=== PATIENT | male | born 1975 | race African-American/Black ===

== ENCOUNTER 2018-12-16 21:16 | Inpatient (IN) | payer OTHER ==
[2018-12-16] MEDS ORDERED: ONDANSETRON 4 MG/2 ML VIAL IVP STA (22:17)
[2018-12-16] MEDS ORDERED: SODIUM CHLORIDE 0.9% 1,000 ML IV STA (22:17)
--- NOTE | 2018-12-16 22:20 | ED ---
General Adult HPI - General Chief complaint: Nausea/Vomiting/Diarrhea Stated complaint: Fever Time Seen by Provider: 12/16/18 22:12 Source: patient, family, RN notes reviewed, old records reviewed Mode of arrival: ambulatory Limitations: no limitations - History of Present Illness Initial comments: 43-year-old male presents for evaluation of nausea vomiting and diarrhea. Patient is his symptoms for the past 24 hours. He reports initially having vomi ting which and progressed to diarrhea. He has not had any episodes of vomiting in the past 12 hours. He states he has had no appetite. He also believes that his urine is concentrated and he is dehydrated. No specific abdominal pain. Patient just completed one week at rehabilitation for cocaine abuse. - Related Data Home Medications Medication Instructions Recorded Confirmed Acetaminophen [Tylenol] 650 mg PO Q4H PRN 12/16/18 12/16/18 Calcium/Magnesium 1000mg/500mg 1 - 2 tab PO TID PRN 12/16/18 12/16/18 Chlorpheniramine Maleate 4 mg PO Q4H PRN 12/16/18 12/16/18 [Chlor-Trimeton] Ibuprofen [Motrin] 600 mg PO Q6H PRN 12/16/18 12/16/18 Multivitamins, Thera [Multivitamin 1 tab PO DAILY 12/16/18 12/16/18 (formulary)] Ondansetron HCl [Zofran] 8 mg PO Q6H PRN 12/16/18 12/16/18 Ondansetron [Zofran] 4 mg IM Q6H PRN 12/16/18 12/16/18 Thiamine [Vitamin B-1] 100 mg PO DAILY 12/16/18 12/16/18 cloNIDine HCL [Catapres] 0.1 mg PO Q4H PRN 12/16/18 12/16/18 traZODone HCL 50 - 150 mg PO HS 12/16/18 12/16/18 Allergies Allergy/AdvReac Type Severity Reaction Status Date / Time No Known Allergies Allergy Verified 12/16/18 22:38 Review of Systems ROS Statement: Those systems with pertinent positive or pertinent negative responses have been documented in the HPI. ROS Other: All systems not noted in ROS Statement are negative. Past Medical History Past Medical History: No Reported History History of Any Multi-Drug Resistant Organisms: None Reported Past Surgical History: No Surgical Hx Reported Past Psychological History: No Psychological Hx Reported Smoking Status: Current every day smoker Past Alcohol Use History: Occasional Past Drug Use History: None Reported General Exam Limitations: no limitations General appearance: alert, in no apparent distress Head exam: Present: atraumatic, normocephalic Eye exam: Present: PERRL, other (Right subconjunctival hemorrhage) ENT exam: Present: mucous membranes dry Neck exam: Present: normal inspection. Absent: tenderness, meningismus Respiratory exam: Present: normal lung sounds bilaterally. Absent: respiratory distress, wheezes, rales Cardiovascular Exam: Present: regular rate, normal rhythm GI/Abdominal exam: Present: soft. Absent: distended, tenderness, guarding, rebound Extremities exam: Present: normal inspection, normal capillary refill. Absent: pedal edema Back exam: Present: normal inspection Neurological exam: Present: alert, oriented X3, CN II-XII intact. Absent: motor sensory deficit Psychiatric exam: Present: normal affect, normal mood Skin exam: Present: warm, dry, intact. Absent: cyanosis, diaphoretic Course Vital Signs 12/16/18 21:51 Temperature 98.7 F Pulse Rate 96 Respiratory 18 Rate Blood Pressure 101/68 O2 Sat by Pulse 98 Oximetry Medical Decision Making - Medical Decision Making 43-year-old male with nausea vomiting diarrhea. Mild generalized abdominal pain, no rebound or guarding, nonsurgical abdomen. Stable vital signs, well- appearing with some dehydration exam. He has significant leukocytosis white count of 20,000, hemoglobin 12.1, creatinine elevated 5.92, potassium is normal for 0.3, he has an elevated total bili 4.5, bili fractions will be added, he has mild AST and ALT elevation as well as alkaline phosphatase. PT INR will be added to his laboratory testing. Gallbladder and liver ultrasound will be obtained, this is pending. Patient will be admitted with significant laboratory abnormalities, dehydration, acute renal failure, liver failure. Case discussed with Dr. Fowler, will admit - Lab Data Result diagrams: 12/16/18 22:45 12/16/18 22:45 Lab Results 12/16/18 12/16/18 12/16/18 Range/Units 22:45 22:45 22:45 WBC 20.3 H (3.8-10.6) k/uL RBC 4.68 (4.30-5.90) m/uL Hgb 12.1 L (13.0-17.5) gm/dL Hct 35.8 L (39.0-53.0) % MCV 76.4 L (80.0-100.0) fL MCH 25.8 (25.0-35.0) pg MCHC 33.8 (31.0-37.0) g/dL RDW 14.3 (11.5-15.5) % Plt Count 124 L (150-450) k/uL Neutrophils % 94 % Lymphocytes % 2 % Monocytes % 2 % Eosinophils % 1 % Basophils % 0 % Neutrophils # 19.2 H (1.3-7.7) k/uL Lymphocytes # 0.4 L (1.0-4.8) k/uL Monocytes # 0.3 (0-1.0) k/uL Eosinophils # 0.2 (0-0.7) k/uL Basophils # 0.0 (0-0.2) k/uL Microcytosis Slight Sodium 137 (137-145) mmol/L Potassium 4.3 (3.5-5.1) mmol/L Chloride 99 (98-107) mmol/L Carbon Dioxide 24 (22-30) mmol/L Anion Gap 14 mmol/L BUN 86 H (9-20) mg/dL Creatinine 5.92 H (0.66-1.25) mg/dL Est GFR (CKD-EPI)AfAm 12 (>60 ml/min/1.73 sqM) Est GFR (CKD-EPI)NonAf 11 (>60 ml/min/1.73 sqM) Glucose 90 (74-99) mg/dL Calcium 8.3 L (8.4-10.2) mg/dL Total Bilirubin 4.5 H (0.2-1.3) mg/dL AST 117 H (17-59) U/L ALT 100 H (21-72) U/L Alkaline Phosphatase 205 H (38-126) U/L Total Protein 6.0 L (6.3-8.2) g/dL Albumin 2.8 L (3.5-5.0) g/dL Lipase 152 (23-300) U/L Urine Color Yellow Urine Appearance Cloudy (Clear) Urine pH 5.0 (5.0-8.0) Ur Specific [place] 1.011 (1.001-1.035) Urine Protein 1+ H (Negative) Urine Glucose (UA) Trace H (Negative) Urine Ketones Trace H (Negative) Urine Blood Small H (Negative) Urine Nitrite Negative (Negative) Urine Bilirubin 1+ H (Negative) Urine Urobilinogen 2.0 (<2.0) mg/dL Ur Leukocyte Esterase Large H (Negative) Urine RBC 3 (0-5) /hpf Urine WBC 34 H (0-5) /hpf Ur Squamous Epith Cells <1 (0-4) /hpf Urine Mucus Rare H (None) /hpf Disposition Clinical Impression: Dehydration, Acute renal failure Disposition: ADMITTED IP TO THIS HOSP Condition: Stable Is patient prescribed a controlled substance at d/c from ED?: No Referrals: None,Stated [Primary Care Provider] - 1-2 days Decision to Admit Reason: Admit from EC Decision Date: 12/16/18 Decision Time: 23:59
[2018-12-16 22:52] LABS: Appearance,Urine Cloudy (Clear); Bilirubin,Urine 1+ (Negative); Blood,Urine Small (Negative); Color,Urine Yellow; Glucose,Urine (UA) Trace (Negative); Ketones,Urine Trace (Negative); Leukocyte Esterase,Urine Large (Negative); Mucus,Urine Rare /hpf; Nitrite,Urine Negative (Negative); Protein,Urine 1+ (Negative); RBC,Urine 3 /hpf (0-5); Specific Gravity,Urine 1.011 (1.001-1.035); Squamous Epithelial Cell,Urine <1 /hpf (0-4); WBC,Urine 34 /hpf (0-5)
[2018-12-16 23:02] LABS: Basophils % (A) 0 %; Eosinophils # (A) 0.2 k/uL (0-0.7); Eosinophils % (A) 1 %; HCT 35.8 % (39.0-53.0); HGB 12.1 gm/dL (13.0-17.5); Lymphocytes # (A) 0.4 k/uL (1.0-4.8); Lymphocytes % (A) 2 %; MCH 25.8 pg (25.0-35.0); MCHC 33.8 g/dL (31.0-37.0); MCV 76.4 fL (80.0-100.0); Mean Platelet Volume 6.3; Microcytosis Slight; Monocytes # (A) 0.3 k/uL (0-1.0); Monocytes % (A) 2 %; Neutrophils # (A) 19.2 k/uL (1.3-7.7); Neutrophils % (A) 94 %; Platelet Count 124 k/uL (150-450); RBC 4.68 m/uL (4.30-5.90); RDW 14.3 % (11.5-15.5); WBC 20.3 k/uL (3.8-10.6)
[2018-12-16 23:07] LABS: Albumin 2.8 g/dL (3.5-5.0); Calcium 8.3 mg/dL (8.4-10.2); Potassium 4.3 mmol/L (3.5-5.1); Total Bilirubin 4.5 mg/dL (0.2-1.3)
[2018-12-16] MEDS ORDERED: cefTRIAXone IN SWFI 1,000 MG/10 ML SYRINGE IVP STA (23:42)
[2018-12-16] MEDS ORDERED: SODIUM CHLORIDE 0.9% 1,000 ML IV ONE (23:42)
[2018-12-16] MEDS ORDERED: NALOXONE 0.4 MG/ML 1 ML VIAL IV PRN (23:56)
[2018-12-16 23:57] LABS: Bilirubin, Conjugated 2.4 mg/dL (0.0-0.3); Bilirubin, Delta 1.2 mg/dL (0.0-0.2); Bilirubin,Unconjugated 0.8 mg/dL (0.0-1.1); Total Bilirubin 4.4 mg/dL (0.2-1.3)
[2018-12-17 00:03] LABS: INR 0.9 (<1.2); Partial Thromboplastin Time 26.4 sec (22.0-30.0); Prothrombin Time 9.8 sec (9.0-12.0)
[2018-12-17] MEDS: SODIUM CHLORIDE 0.9% 1,000 ML IV SCH ×4 (00:20→21:29)
[2018-12-17] MEDS ORDERED: NICOTINE 14MG/24HR PATCH TRANSDERM STA (00:43)
--- NOTE | 2018-12-17 00:51 | P.HPIM ---
History of Present Illness H&P Date: 12/17/18 The patient is a 43 yo M with a PMH of polysubstance abuse and tobacco abuse presented to the ED for nausea and vomiting. The patient notes that he had been at [facility] over the past 1 week for cocaine and crystal meth detox. 2 days ago he developed nausea and vomiting with 5-6 episodes of vomiting yesterday and today. He reports the vomitus is non-bloody and non-billious with his abdomen feeling "sore" after the multiple episodes. He denied diarrhea, or sick contacts. He initially felt that his symptoms could be from withdrawal though once they did not improve, he came to the ED. He also endorsed urinary frequency and urgency and notes that he has a "prostate issue", possibly BPH. He endorsed significant nocturia of 3-4 x/night. He reported his last use of cocaine was 1 week ago, which he was injecting, and that he hasn't used crystal meth for several months. He also denied any alcohol use over the psat 4-5 years He however denied chest pain, SOB, fever, chills, headache, visual disturbances, or weakness. He noted that he was last seen by a physician 1 year ago when he was admitted to a hospital for acute renal failure from dehydration, after which his kidney failure had resolved. He denied history of hepatitis or any liver issues. He underwent an extensive evaluation in the ED w/ WBC 20.3, platelets 124, BUN 86, Cr 5.92, w/ Albumin 2.8, and UA consistent with a UTI. A RUQ US was ordered and is pending. He is being admitted to the medicine service for further management. Review of Systems Pertinent positives and negatives as discussed in HPI, a complete review of systems was performed and all other systems are negative. Past Medical History Past Medical History: No Reported History, Renal Disease History of Any Multi-Drug Resistant Organisms: None Reported Past Surgical History: No Surgical Hx Reported Past Psychological History: No Psychological Hx Reported Smoking Status: Current every day smoker Past Alcohol Use History: Occasional Past Drug Use History: None Reported - Past Family History Father Family Medical History: Cancer Medications and Allergies Home Medications Medication Instructions Recorded Confirmed Type Acetaminophen [Tylenol] 650 mg PO Q4H PRN 12/16/18 12/16/18 History Calcium/Magnesium 1000mg/500mg 1 - 2 tab PO TID PRN 12/16/18 12/16/18 History Chlorpheniramine Maleate 4 mg PO Q4H PRN 12/16/18 12/16/18 History [Chlor-Trimeton] Ibuprofen [Motrin] 600 mg PO Q6H PRN 12/16/18 12/16/18 History Multivitamins, Thera [Multivitamin 1 tab PO DAILY 12/16/18 12/16/18 History (formulary)] Ondansetron HCl [Zofran] 8 mg PO Q6H PRN 12/16/18 12/16/18 History Ondansetron [Zofran] 4 mg IM Q6H PRN 12/16/18 12/16/18 History Thiamine [Vitamin B-1] 100 mg PO DAILY 12/16/18 12/16/18 History cloNIDine HCL [Catapres] 0.1 mg PO Q4H PRN 12/16/18 12/16/18 History traZODone HCL 50 - 150 mg PO HS 12/16/18 12/16/18 History Allergies Allergy/AdvReac Type Severity Reaction Status Date / Time No Known Allergies Allergy Verified 12/16/18 22:38 Physical Exam Vitals: Vital Signs Temp Pulse Resp BP Pulse Ox 12/16/18 21:51 98.7 F 96 18 101/68 98 Intake and Output 12/16/18 12/16/18 12/17/18 14:59 22:59 06:59 Other: Weight 77.111 kg General: non toxic, no distress, appears at stated age, normal weight Derm: Mild jaundice, no unusual ecchymoses, warm, dry Head: atraumatic, normocephalic, symmetric Eyes: EOMI, no lid lag, mild scleral icterus w/ R conjunctival injection, pupils equal round reactive to light ENT: Nose and ears atraumatic, no thrush, no pharyngeal erythema Neck: No thyromegaly, no cervical lymphadenopathy, trachea midline, supple Mouth: no lip lesion, mucus membranes moist Cardiovascular: S1S2 reg, no murmur, positive posterior tibial pulse bilateral, no edema, capillary refill less than 2 seconds Lungs: CTA bilateral, no rhonchi, no rales , no accessory muscle use Abdominal: soft, nontender to palpation, no guarding, no appreciable organomegaly, normal bowel sounds Ext: no gross muscle atrophy, muscle strength 5 out of 5 in all 4 extremities grossly, no contractures, Neuro: CN II-XI grossly intact, light touch intact all 4 extremities, finger to nose within normal limits, Psych: Alert, oriented, appropriate affect Results CBC & Chem 7: 12/16/18 22:45 12/16/18 22:45 Labs: Abnormal Lab Results - Last 24 Hours (Table) 12/16/18 12/16/18 12/16/18 Range/Units 22:45 22:45 22:45 WBC 20.3 H (3.8-10.6) k/uL Hgb 12.1 L (13.0-17.5) gm/dL Hct 35.8 L (39.0-53.0) % MCV 76.4 L (80.0-100.0) fL Plt Count 124 L (150-450) k/uL Neutrophils # 19.2 H (1.3-7.7) k/uL Lymphocytes # 0.4 L (1.0-4.8) k/uL BUN 86 H (9-20) mg/dL Creatinine 5.92 H (0.66-1.25) mg/dL Calcium 8.3 L (8.4-10.2) mg/dL Total Bilirubin 4.5 H (0.2-1.3) mg/dL Conjugated Bilirubin (0.0-0.3) mg/dL Delta Bilirubin (0.0-0.2) mg/dL AST 117 H (17-59) U/L ALT 100 H (21-72) U/L Alkaline Phosphatase 205 H (38-126) U/L Total Protein 6.0 L (6.3-8.2) g/dL Albumin 2.8 L (3.5-5.0) g/dL Urine Protein 1+ H (Negative) Urine Glucose (UA) Trace H (Negative) Urine Ketones Trace H (Negative) Urine Blood Small H (Negative) Urine Bilirubin 1+ H (Negative) Ur Leukocyte Esterase Large H (Negative) Urine WBC 34 H (0-5) /hpf Urine Mucus Rare H (None) /hpf 12/16/18 Range/Units 23:48 WBC (3.8-10.6) k/uL Hgb (13.0-17.5) gm/dL Hct (39.0-53.0) % MCV (80.0-100.0) fL Plt Count (150-450) k/uL Neutrophils # (1.3-7.7) k/uL Lymphocytes # (1.0-4.8) k/uL BUN (9-20) mg/dL Creatinine (0.66-1.25) mg/dL Calcium (8.4-10.2) mg/dL Total Bilirubin 4.4 H (0.2-1.3) mg/dL Conjugated Bilirubin 2.4 H (0.0-0.3) mg/dL Delta Bilirubin 1.2 H (0.0-0.2) mg/dL AST (17-59) U/L ALT (21-72) U/L Alkaline Phosphatase (38-126) U/L Total Protein (6.3-8.2) g/dL Albumin (3.5-5.0) g/dL Urine Protein (Negative) Urine Glucose (UA) (Negative) Urine Ketones (Negative) Urine Blood (Negative) Urine Bilirubin (Negative) Ur Leukocyte Esterase (Negative) Urine WBC (0-5) /hpf Urine Mucus (None) /hpf Assessment and Plan Plan: Renal failure, BLNACHE vs CKD -C/w IVFs -Send urine studies -Consult nephrology Nausea and vomiting, possibly secondary to uremia -Anti-emetics -Liquid diet Deranged LFTs w/ elevated bilirubin and transaminases, and hypoalbuminemia -F/u RUQ US -Check Hepatitis panel -GI consult UTI w/ possible BPH -Obtain bladder scan -C/w Ceftriaxone -F/u urine cultures Thrombocytopenia -Possibly secondary to liver failure -Monitor for now Polysubstance abuse -Advised on importance of cessation Tobacco abuse -Advised on importance of cessation -Nicotine patch DVT prophylaxis -IPCDs The patient is admitted with an anticipated greater than 2 midnight stay for evaluation of renal and liver failure. CODE STATUS:Full Code Discussed with: Patient Anticipated discharge date: 12/20/[address]: Home A total of 45 minutes was spent on the care of this complex patient more than 50% of the time was spent in counseling and care coordination.
--- NOTE | 2018-12-17 01:11 | US ---
EXAM: US Abdomen Limited, Right Upper Quadrant CLINICAL HISTORY: ITS.REASON US Reason: Pain TECHNIQUE: Real-time ultrasound of the right upper quadrant with image documentation. COMPARISON: No relevant prior studies available. FINDINGS: Liver: The liver measures 17.0 cm in length. Gallbladder: No gallstones. Borderline gallbladder wall thickness. Negative sonographic Tong's sign. Common bile duct: Common bile duct measures 4 mm. Pancreas: Mildly prominent pancreatic duct. Right kidney: The right kidney measures 13.5 cm in length. No significant hydronephrosis. Right renal cyst measures 3.7 cm. IMPRESSION: 1. No gallstones. 2. Mildly prominent pancreatic duct. 3. Right renal cyst.
[2018-12-17] MEDS: ONDANSETRON 4 MG TAB PO PRN ×2 (01:29→21:24)
[2018-12-17 02:10] VITALS: BMI 25.1
[2018-12-17] MEDS: METOCLOPRAMIDE 5 MG/ML 2 ML VIAL IVP PRN ×2 (05:40→18:12)
[2018-12-17 06:02] LABS: HCT 33.6 % (39.0-53.0); HGB 11.4 gm/dL (13.0-17.5); MCH 25.8 pg (25.0-35.0); MCHC 33.8 g/dL (31.0-37.0); MCV 76.5 fL (80.0-100.0); Mean Platelet Volume 6.8; Platelet Count 131 k/uL (150-450); RBC 4.39 m/uL (4.30-5.90); RDW 14.9 % (11.5-15.5); WBC 13.3 k/uL (3.8-10.6)
[2018-12-17 06:12] LABS: Albumin 2.5 g/dL (3.5-5.0); Calcium 7.8 mg/dL (8.4-10.2); Potassium 3.7 mmol/L (3.5-5.1); Total Bilirubin 5.8 mg/dL (0.2-1.3); Total Protein 5.5 g/dL (6.3-8.2)
--- NOTE | 2018-12-17 09:40 | P.PN ---
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 No diarrhea was reported prior to admission. O:- VSS, afebrile, CTA&P, RRR, S1S2 +, Abdomen soft and BS+, PP+, No point spinous tenderness of thoracic or Lumbar spines. A/P:- Diarrhea, Back pain, UTI, BLANCHE - Will check stool C. Diff toxin A & B. Pt. was referred to GI and Nephrology services and their recs awaited. Pt. also c/o mid back pain, with h/o UTI and on Abx, may be due to Pyelonephritis as no point spinous tenderness noted on today's exam. If pain persists post control of infection, may consider MRI of thoracic and Lumbar spines as due to BLANCHE Contrast CT-Thoracic & Lumbar spines can't be done.
[2018-12-17] MEDS: ONDANSETRON 4 MG/2 ML VIAL IVP PRN ×2 (10:12→15:45)
[2018-12-17] MEDS ORDERED: FUROSEMIDE 10 MG/ML 4 ML VIAL IV SCH (10:15)
[2018-12-17] MEDS ORDERED: traMADol-ACETAMINOP 37.5-325MG 1 EACH TAB PO PRN (12:01)
[2018-12-17 13:07] LABS: Hepatitis B Surface AB- Quant 3.5 mIU/mL
--- NOTE | 2018-12-17 13:31 | P.NPCON ---
History of Present Illness - Reason for Consult Consult date: 12/17/18 acute renal failure - Chief Complaint Vomiting and diarrhea. - History of Present Illness 43-year-old gentleman coming to the hospital from [facility] for nausea and vomiting for the last 24 hours. Denies any history of kidney disease. Very poor historian. No further nausea vomiting while in the hospital. He was taking Motrins. No recent contrast studies. No herbal use. Denies rash or joint pains. He used to abuse alcohol in the past but not lately. Urine analysis noted, blood, glucose, protein and predominant WBCs. Abdominal ultrasound no hydronephrosis. Review of Systems Constitutional: Reports as per HPI Past Medical History Past Medical History: No Reported History, Renal Disease History of Any Multi-Drug Resistant Organisms: None Reported Past Surgical History: No Surgical Hx Reported Past Psychological History: No Psychological Hx Reported Smoking Status: Current every day smoker Past Alcohol Use History: Occasional Past Drug Use History: None Reported - Past Family History Father Family Medical History: Cancer Medications and Allergies Home Medications Medication Instructions Recorded Confirmed Type Acetaminophen [Tylenol] 650 mg PO Q4H PRN 12/16/18 12/16/18 History Calcium/Magnesium 1000mg/500mg 1 - 2 tab PO TID PRN 12/16/18 12/16/18 History Chlorpheniramine Maleate 4 mg PO Q4H PRN 12/16/18 12/16/18 History [Chlor-Trimeton] Ibuprofen [Motrin] 600 mg PO Q6H PRN 12/16/18 12/16/18 History Multivitamins, Thera [Multivitamin 1 tab PO DAILY 12/16/18 12/16/18 History (formulary)] Ondansetron HCl [Zofran] 8 mg PO Q6H PRN 12/16/18 12/16/18 History Ondansetron [Zofran] 4 mg IM Q6H PRN 12/16/18 12/16/18 History Thiamine [Vitamin B-1] 100 mg PO DAILY 12/16/18 12/16/18 History cloNIDine HCL [Catapres] 0.1 mg PO Q4H PRN 12/16/18 12/16/18 History traZODone HCL 50 - 150 mg PO HS 12/16/18 12/16/18 History Allergies Allergy/AdvReac Type Severity Reaction Status Date / Time No Known Allergies Allergy Verified 12/16/18 22:38 Physical Exam Vitals: Vital Signs Temp Pulse Pulse Resp BP BP Pulse Ox 12/17/18 12:24 97.9 F 76 16 106/68 97 12/17/18 12:22 97.9 F 76 16 106/68 97 12/17/18 05:28 97.9 F 106 H 16 96/60 96 12/17/18 02:10 98.4 F 86 18 110/70 98 12/17/18 00:20 71 18 98/60 99 12/16/18 21:51 98.7 F 96 18 101/68 98 Intake and Output 12/16/18 12/17/18 12/17/18 22:59 06:59 14:59 Intake Total 500 Balance 500 Intake: Intake, IV Titration 500 Amount Sodium Chloride 0.9% 1, 500 000 ml @ 100 mls/hr IV . Q10H INOCENCIO Rx#:[id number] Other: Voiding Method Urinal Urinal Weight 77.111 kg No acute distress lying comfortable S1-S2 heard Lungs clear Abdomen soft No edema Results - Lab Results Most recent lab results Calcium 7.8 mg/dL (8.4-10.2) L 12/17/18 05:47 Magnesium 2.0 mg/dL (1.6-2.3) 12/17/18 05:47 12/17/18 05:47 12/17/18 05:47 Assessment and Plan Assessment: #1 oliguric acute kidney injury secondary to prerenal process from nausea and vomiting plus diarrhea. Rule out: -acute interstitial nephritis with recent Motrin use and pyuria. -Vasculitis from cocaine. -Rhabdomyolysis from cocaine #2 low normal blood pressures. #3 liver dysfunction #4 metabolic acidosis from acute kidney injury #5 mild hypokalemia Plan: #1 continue with IV fluids at 125 ML's an hour. Serum osmolality is high, calculated is also 309. Due to elevated bun. #2 strict ins and outs. #3 urine eosinophils has been sent including serology. Check ANCA to rule out vasculitis. He does not need a 24-hour urine protein at this time. #4 add low-dose tutoring for hemodynamic support. #5 avoid nephrotoxic agents and hypotensive episodes. #6 no acute indication for renal replacement therapy at this time. If renal function continues to remain high planned renal biopsy. #7 GI evaluation for elevated liver enzymes. Rule out Tylenol toxicity
[2018-12-17 13:51] LABS: Hepatitis B Core IgM Non-Reactive (Non-Reactive)
[2018-12-17 18:46] LABS: Iron Saturation 7.77 (15.00-50.00)
[2018-12-17 20:28] LABS: EBV-EA (IgG) <0.2 AI; EBV-EBNA(IgG) >8.0 AI; EBV-VCA (IgG) >8.0 AI
--- NOTE | 2018-12-17 21:45 | P.CONS ---
History of Present Illness - Reason for Consult Consult date: 12/17/18 Elevated liver enzymes Requesting physician: Juanjose Fowler - Chief Complaint Nausea and vomiting - History of Present Illness 43-year-old male with a past medical history significant for polysubstance abuse, tobacco abuse and a prior history of alcohol abuse for which she has been abstinent for the past 2 years who presents to the hospital with complaints of nausea and vomiting. The patient was admitted to rehab 1 week ago for treatment of cocaine and crystal meth abuse. 2 days ago the patient developed symptoms of nausea and vomiting. He reports approximately 5 episodes of non-bloody emesis. He denies any sick contacts or unusual exposures prior to developing symptoms. The patient's had associated abdominal pain described as generalized across his abdomen, mild and sore in nature. Patient also reported some loose stool, nonbloody which developed with his symptoms. Labs on hospitalization or significant for a WBC 13.3, hemoglobin 11.4, MCV 76.5, platelet count 131,000, INR 0.9, total bilirubin 5.8, alkaline phosphatase 195, AST 99 and ALT 95. Patient was also found to have a markedly elevated creatinine and has been hospitalized for acute kidney injury in the past. On questioning he denies any history of liver disease or viral hepatitis. He has been an IV drug user in the past. He denies any herbal supplementation but does note a family history of cirrhosis and his grandfather and mother which she believes it was secondary to alcohol abuse. The patient himself reports drinking to the point of blacking out from the age of 15 until approximately 2 years ago. Ultrasound evaluation was negative for any gallstones or CBD dilation with a right renal cyst noted. Review of Systems REVIEW OF SYSTEMS: CONSTITUTIONAL: Denies any subjective fevers but does report fatigue. CARDIOVASCULAR: Denies any chest pain, palpitations high or low blood pressures RESPIRATORY: Denies any shortness of breath, hemoptysis or cough. GENITOURINARY: No dysuria or hematuria, but the patient does report nocturia, and dark urine. MUSCULOSKELETAL: No weakness reported. SKIN: Denies any new rashes or lesions, jaundice or pallor. PSYCHIATRIC: Denies any depression or anxiety. NEUROLOGY: Denies headache, denies any new focal deficits. EARS/NOSE/THROAT: No recent hearing change, congestion, nasal discharge or sore throat. EYES: No pain in eyes, discharge or change in vision. GASTROINTESTINAL: As per HPI. Past Medical History Past Medical History: No Reported History, Renal Disease History of Any Multi-Drug Resistant Organisms: None Reported Past Surgical History: No Surgical Hx Reported Past Psychological History: No Psychological Hx Reported Smoking Status: Current every day smoker Past Alcohol Use History: Occasional Past Drug Use History: None Reported - Past Family History Father Family Medical History: Cancer Additional Family Medical History / Comment(s): Reports cirrhosis secondary to alcohol abuse in mother and grandfather Medications and Allergies Home Medications Medication Instructions Recorded Confirmed Type Acetaminophen [Tylenol] 650 mg PO Q4H PRN 12/16/18 12/16/18 History Calcium/Magnesium 1000mg/500mg 1 - 2 tab PO TID PRN 12/16/18 12/16/18 History Chlorpheniramine Maleate 4 mg PO Q4H PRN 12/16/18 12/16/18 History [Chlor-Trimeton] Ibuprofen [Motrin] 600 mg PO Q6H PRN 12/16/18 12/16/18 History Multivitamins, Thera [Multivitamin 1 tab PO DAILY 12/16/18 12/16/18 History (formulary)] Ondansetron HCl [Zofran] 8 mg PO Q6H PRN 12/16/18 12/16/18 History Ondansetron [Zofran] 4 mg IM Q6H PRN 12/16/18 12/16/18 History Thiamine [Vitamin B-1] 100 mg PO DAILY 12/16/18 12/16/18 History cloNIDine HCL [Catapres] 0.1 mg PO Q4H PRN 12/16/18 12/16/18 History traZODone HCL 50 - 150 mg PO HS 12/16/18 12/16/18 History Allergies Allergy/AdvReac Type Severity Reaction Status Date / Time No Known Allergies Allergy Verified 12/16/18 22:38 Physical Exam Vitals: Vital Signs Temp Pulse Pulse Resp BP BP Pulse Ox 12/17/18 12:24 97.9 F 76 16 106/68 97 12/17/18 12:22 97.9 F 76 16 106/68 97 12/17/18 05:28 97.9 F 106 H 16 96/60 96 12/17/18 02:10 98.4 F 86 18 110/70 98 12/17/18 00:20 71 18 98/60 99 12/16/18 21:51 98.7 F 96 18 101/68 98 Intake and Output 12/16/18 12/17/18 12/17/18 22:59 06:59 14:59 Intake Total 500 Balance 500 Intake: Intake, IV Titration 500 Amount Sodium Chloride 0.9% 1, 500 000 ml @ 100 mls/hr IV . Q10H [facility] Rx#:[id number] Other: Voiding Method Urinal Weight 77.111 kg On physical examination, patient appears comfortable in no apparent distress. HEAD: Normocephalic, atraumatic. EYES: Minimal scleral icterus. No conjunctival injection. MOUTH: No lesions, tongue midline. NECK: Trachea midline, no gross abnormalities. CHEST: Clear to auscultation with no wheezing or rhonchi appreciated. HEART: Regular rate and rhythm. ABDOMEN: Soft. Bowel sounds are positive. No organomegaly. No guarding or rigidity. EXTREMITIES: No pedal edema. SKIN: No rashes. NEUROLOGIC: Alert and oriented x3. No focal deficits. Results CBC & Chem 7: 12/17/18 05:47 12/17/18 05:47 Labs: Abnormal Lab Results - Last 24 Hours (Table) 12/16/18 12/16/18 12/16/18 Range/Units 22:45 22:45 22:45 WBC 20.3 H (3.8-10.6) k/uL Hgb 12.1 L (13.0-17.5) gm/dL Hct 35.8 L (39.0-53.0) % MCV 76.4 L (80.0-100.0) fL Plt Count 124 L (150-450) k/uL Neutrophils # 19.2 H (1.3-7.7) k/uL Lymphocytes # 0.4 L (1.0-4.8) k/uL BUN 86 H (9-20) mg/dL Creatinine 5.92 H (0.66-1.25) mg/dL Glucose (74-99) mg/dL Osmolality (280-301) mosm/kg Calcium 8.3 L (8.4-10.2) mg/dL Total Bilirubin 4.5 H (0.2-1.3) mg/dL Conjugated Bilirubin (0.0-0.3) mg/dL Delta Bilirubin (0.0-0.2) mg/dL AST 117 H (17-59) U/L ALT 100 H (21-72) U/L Alkaline Phosphatase 205 H (38-126) U/L Total Protein 6.0 L (6.3-8.2) g/dL Albumin 2.8 L (3.5-5.0) g/dL Urine Protein 1+ H (Negative) Urine Glucose (UA) Trace H (Negative) Urine Ketones Trace H (Negative) Urine Blood Small H (Negative) Urine Bilirubin 1+ H (Negative) Ur Leukocyte Esterase Large H (Negative) Urine WBC 34 H (0-5) /hpf Urine Mucus Rare H (None) /hpf 12/16/18 12/17/18 12/17/18 Range/Units 23:48 05:47 05:47 WBC 13.3 H (3.8-10.6) k/uL Hgb 11.4 L (13.0-17.5) gm/dL Hct 33.6 L (39.0-53.0) % MCV 76.5 L (80.0-100.0) fL Plt Count 131 L (150-450) k/uL Neutrophils # (1.3-7.7) k/uL Lymphocytes # (1.0-4.8) k/uL BUN (9-20) mg/dL Creatinine (0.66-1.25) mg/dL Glucose (74-99) mg/dL Osmolality 309 H (280-301) mosm/kg Calcium (8.4-10.2) mg/dL Total Bilirubin 4.4 H (0.2-1.3) mg/dL Conjugated Bilirubin 2.4 H (0.0-0.3) mg/dL Delta Bilirubin 1.2 H (0.0-0.2) mg/dL AST (17-59) U/L ALT (21-72) U/L Alkaline Phosphatase (38-126) U/L Total Protein (6.3-8.2) g/dL Albumin (3.5-5.0) g/dL Urine Protein (Negative) Urine Glucose (UA) (Negative) Urine Ketones (Negative) Urine Blood (Negative) Urine Bilirubin (Negative) Ur Leukocyte Esterase (Negative) Urine WBC (0-5) /hpf Urine Mucus (None) /hpf 12/17/18 Range/Units 05:47 WBC (3.8-10.6) k/uL Hgb (13.0-17.5) gm/dL Hct (39.0-53.0) % MCV (80.0-100.0) fL Plt Count (150-450) k/uL Neutrophils # (1.3-7.7) k/uL Lymphocytes # (1.0-4.8) k/uL BUN 85 H (9-20) mg/dL Creatinine 6.11 H (0.66-1.25) mg/dL Glucose 69 L (74-99) mg/dL Osmolality (280-301) mosm/kg Calcium 7.8 L (8.4-10.2) mg/dL Total Bilirubin 5.8 H (0.2-1.3) mg/dL Conjugated Bilirubin (0.0-0.3) mg/dL Delta Bilirubin (0.0-0.2) mg/dL AST 99 H (17-59) U/L ALT 95 H (21-72) U/L Alkaline Phosphatase 195 H (38-126) U/L Total Protein 5.5 L (6.3-8.2) g/dL Albumin 2.5 L (3.5-5.0) g/dL Urine Protein (Negative) Urine Glucose (UA) (Negative) Urine Ketones (Negative) Urine Blood (Negative) Urine Bilirubin (Negative) Ur Leukocyte Esterase (Negative) Urine WBC (0-5) /hpf Urine Mucus (None) /hpf US - abdomen: report reviewed (Ultrasound evaluation was negative for any gallstones or CBD dilation with a right renal cyst noted.) Assessment and Plan (1) Elevated liver enzymes Narrative/Plan: 43-year-old male who presented to the hospital due to complaints of nausea and vomiting after one week at a rehabilitation center where he was receiving treatment for polysubstance. On presentation to the hospital liver enzymes were found to be markedly elevated with total bilirubin 5.8, alkaline phosphatase 195, AST 99 and ALT 95. Ultrasound negative for any findings of gallstones or gallbladder wall thickening and CBD within normal limits at 4 mm. Unclear etiology of elevation in liver enzymes however the patient's 30 year history of heavy alcohol use does make underlying fibrosis/cirrhosis likely, with consideration also for ischemia/hypoperfusion of the liver in the setting of dehydration, acute viral hepatitis panel significant only for immunity to hepatitis B, with full serology ordered to rule out any other underlying liver pathology. Current Visit: Yes Status: Acute Code(s): R74.8 - ABNORMAL LEVELS OF OTHER SERUM ENZYMES SNOMED Code(s): 751334801 (2) History of alcohol abuse Current Visit: Yes Status: Acute Code(s): F10.11 - ALCOHOL ABUSE, IN REMISSION SNOMED Code(s): 840732743 Plan: Supportive care IV fluid hydration Antiemetic therapy as needed Okay for diet Full liver serologies ordered to rule out underlying liver pathology, the patient did have elevation in ferritin over 1000 however other iron studies are not consistent with hemachromatosis and this is likely elevated in the setting of acute liver injury MRI abdomen without contrast ordered to rule out choledocholithiasis, although less likely given the absence of gallstones or CBD dilation on ultrasound or clinical presentation consistent with the diagnosis Thank you for allowing us to participate in the care of the patient we will continue to follow
[2018-12-18 07:25] LABS: Total Volume 24 Hour,Urine 2450 mls (800-1800)
[2018-12-18 08:05] LABS: Prothrombin Time 10.5 sec (9.0-12.0)
[2018-12-18 08:07] LABS: Acetaminophen <10.0 ug/mL; African American GFR (CKD) 15 (>60 ml/min/1.73 sqM); Anion Gap 11 mmol/L; Blood Urea Nitrogen 88 mg/dL (9-20); Calcium 7.9 mg/dL (8.4-10.2); Carbon Dioxide 23 mmol/L (22-30); Chloride 104 mmol/L (98-107); Glucose 83 mg/dL (74-99); Potassium 3.5 mmol/L (3.5-5.1); Sodium 138 mmol/L (137-145)
[2018-12-18 08:09] LABS: Albumin 2.3 g/dL (3.5-5.0); Bilirubin, Conjugated 4.1 mg/dL (0.0-0.3); Bilirubin, Delta 1.8 mg/dL (0.0-0.2); Bilirubin,Unconjugated 0.7 mg/dL (0.0-1.1); Total Bilirubin 6.6 mg/dL (0.2-1.3); Total Protein 5.3 g/dL (6.3-8.2)
[2018-12-18] MEDS: SODIUM CHLORIDE 0.9% 1,000 ML IV SCH ×3 (08:33→17:01)
[2018-12-18 09:08] LABS: Total Protein 24 Hour,Urine 735 mg/24hr (42.0-225.0)
--- NOTE | 2018-12-18 09:58 | PN ---
PROGRESS NOTE Patient is seen for followup for acute kidney injury. His creatinine had peaked to 6.1 yesterday. Today it is down to 5.1. Patient states he has been voiding. He denies any other significant complaints. No complaints of nausea, vomiting or abdominal pain. No previous labs available to assess patient's baseline renal function. All serologies are negative thus far. PHYSICAL EXAMINATION: On examination today, blood pressure was 95/56, heart rate 71 per minute. Patient is afebrile. EXAMINATION OF THE HEART: S1 and S2. EXAMINATION OF LUNGS: Bilateral breath sounds are heard. ABDOMEN: Soft, non-tender. Examination of lower extremities shows no significant edema. LABS: Sodium 138, potassium 3.5, BUN 88, serum creatinine 5.13, hemoglobin 11.4 g/dL. Yesterday ferritin was elevated at 1346 and iron saturation at 7.7. ASSESSMENT: 1. Advanced renal failure, most likely acute. Some improvement in creatinine from yesterday. However, renal function remains elevated. The patient had been on NSAIDs prior to admission, which are currently on hold. Continue with aggressive IV hydration. All serologies are thus far negative. Check urine for eosinophiles and, if positive, I will add empiric steroids. If renal function does not improve, patient will need a kidney biopsy. 2. Metabolic acidosis from renal failure. 3. Rhabdomyolysis from cocaine abuse. 4. Liver dysfunction secondary to hypoperfusion. Rule out chronic liver disease. PLAN: Continue IV fluids. Repeat labs in a.m. Check urine for eosinophiles. Start empiric steroids if urine eosinophiles are positive. Check ultrasound of the kidneys and avoid any nephrotoxic medications. MMODL / IJN: [id number] /
[2018-12-18 10:16] LABS: Ceruloplasmin 28.4 mg/dL (20.0-60.0)
--- NOTE | 2018-12-18 12:14 | MR ---
EXAMINATION TYPE: MR abdomen wo con DATE OF EXAM: 12/18/2018 COMPARISON: Ultrasound 12/17/2018 HISTORY: RUQ abd pain, N & V, Elevated bilirubin, ARF Standard multiplanar, multisequence MRI departmental protocol Multiplanar, multisequence images of the abdomen were acquired. Exam is severely limited due to motio n artifact and lack of contrast. Exam is nearly nondiagnostic due to the amount of artifact.. FINDINGS: Severe artifact limits the exam. There is a simple appearing right renal cyst with no hydronephrosis. Kidneys are prominent size. Subcentimeter simple cyst involving the lower pole left kidney. Nonspeci fic perinephric edema noted bilaterally. Spleen is homogeneous in signal in the adrenal glands have a normal morphology. Pancreas grossly with in normal limits. Mild prominence the pancreatic duct by ultrasound is not as well-seen by MRI. Bowel gas pattern nonspecific. Evaluation of the pancreas is limited due to motion artifact. No obvio us neoplastic process. Gallbladder measures 8 cm distended with no definite gallstones. Subsegmental changes at both lung ba ses are seen suggestive of atelectasis. At T2 imaging particularly image 28 there is an area of low signal within the liver within the right lobe. This is not replicated on T1 images. There is severe artifact in the region. Difficult to deter mine if this is artifactual or related to intrahepatic lesion given the limitation of this exam. Heart is prominent and the aorta is limited in assessment due to artifact.. Could not exclude a subcu taneous edema. Ampullary region is difficult to assess and nondiagnostic due to artifact and motion IMPRESSION: 1. Severely limited exam which is nearly nondiagnostic. Grossly the gallbladder measures 8 cm and nany ears to be mildly distended without evidence of gallstone. Consider HIDA scan. 2. There is a area of abnormal signal measuring 2.7 cm within the right lobe of the liver which is on ly identified on T2 imaging. Given the limitation of this exam a follow-up CT scan is recommended for further evaluation with attention to the lateral margin of the right lobe to determine if this is ar tifactual or related to true pathology. Underlying neoplasm or pathology not excluded given the limit ation of this exam. 3. Cardiomegaly and bibasilar subsegmental consolidation.
--- NOTE | 2018-12-18 17:32 | P.PN ---
Subjective Progress Note Date: 12/18/18 (delayed charting patient seen at 1230) Principal diagnosis: nausea and vomiting Patient is a 43-year-old -[place] male with a past medical history of polysubstance abuse with heroin and cocaine, tobacco abuse, and prior acute kidney injury. Patient presented from [facility] due to 2 days of nausea and vomiting. In the ER he underwent an extensive evaluation. On arrival his vital signs were within normal limits. Laboratory analysis showed an elevated white blood cell count at 20.3, hemoglobin 12.1, platelets 124, BUN 86, creatinine 5.92, total bilirubin 4.5, AST 117, ALP 100, alkaline phosphatase 205. Urinalysis was negative. He underwent a right upper quadrant ultrasound which showed no gallstones, mildly prominent pancreatic duct, and right renal cyst. He was started on IV fluids and made for further monitoring. Acute hepatitis panel was checked which was nonreactive. GI nephrology were consulted. AMA negative, complement levels negative. IgG for EBV and CMV reactive however IgM was nonreactive. On 12/18 he had slight improvement in his renal function. Ceruloplasmin negative, alpha-1 antitrypsin was elevated, CPK was not significantly elevated consistent with rhabdo. His ferritin was slightly elevated at 1346 over remainder of labs were not consistent with hemachromatosis. Patient seen and examined at bedside. Denies any chest pain, shortness breath, nausea, vomiting, or diarrhea. Objective - Vital Signs Vital signs: Vital Signs Temp 98.4 F 12/18/18 12:35 Pulse 71 12/18/18 12:35 Resp 16 12/18/18 12:35 BP 95/57 12/18/18 12:35 Pulse Ox 97 12/18/18 12:35 Intake & Output 12/17/18 12/18/18 12/18/18 18:59 06:59 18:59 Intake Total 2700 1640 1200 Output Total 600 Balance 2700 1640 600 Weight 77.111 kg Intake: Intake, IV Titration 1550 1100 Amount Sodium Chloride 0.9% 1, 1500 1000 000 ml @ 125 mls/hr IV . Q8H [facility] Rx#:[id number] cefTRIAXone 1 gm In 50 100 Sodium Chloride 0.9% 50 ml @ 100 mls/hr IVPB Q24H [facility] Rx#:[id number] Oral [phone] Output: Urine 600 Other: Voiding Method Urinal Urinal Urinal # Voids 3 300 # Bowel Movements 1 - Exam General: non toxic, no distress, appears at stated age Derm: warm, dry Head: atraumatic, normocephalic, symmetric Eyes: EOMI, no lid lag, anicteric sclera Mouth: no lip lesion, mucus membranes moist Cardiovascular: S1S2 reg, no murmur, positive posterior tibial pulse bilateral, Lungs: CTA bilateral, no rhonchi, no rales , no accessory muscle use Abdominal: soft, nontender to palpation, no guarding, no appreciable organomegaly Ext: no gross muscle atrophy, no edema, no contractures Neuro: CN II-XI grossly intact, no focal neuro deficits Psych: Alert, oriented, appropriate affect - Labs CBC & Chem 7: 12/17/18 05:47 12/18/18 07:34 Labs: Abnormal Lab Results - Last 24 Hours (Table) 12/17/18 12/17/18 12/18/18 Range/Units 05:47 05:47 06:30 BUN (9-20) mg/dL Creatinine (0.66-1.25) mg/dL Calcium (8.4-10.2) mg/dL Iron 15 L (65-175) ug/dL TIBC 193 L (228-460) ug/dL Iron Saturation 7.77 L (15.00-50.00) Transferrin 130.0 L (204.0-354.0) mg/dL Ferritin 1346.2 H (22.0-322.0) ng/mL Total Bilirubin (0.2-1.3) mg/dL Conjugated Bilirubin (0.0-0.3) mg/dL Delta Bilirubin (0.0-0.2) mg/dL AST (17-59) U/L ALT (21-72) U/L Alkaline Phosphatase (38-126) U/L Total Protein (6.3-8.2) g/dL Total Protein (PEP) 5.0 L (6.2-8.2) g/dL Albumin (3.5-5.0) g/dL [id number] 330.0 H (99.0-242.0) mg/dL Ur 24 Hour Volume 2450 H (800-1800) mls U Tot Protein 24h, Calc 735 H (42.0-225.0) mg/24hr CMV IgG Ab Reactive H (Non-Reactive) EBV Capsid Ag IgG Intrp POSITIVE H (NEGATIVE) EBV Nuc Ag IgG Interp POSITIVE H (NEGATIVE) 12/18/18 12/18/18 Range/Units 07:34 07:34 BUN 88 H (9-20) mg/dL Creatinine 5.13 H (0.66-1.25) mg/dL Calcium 7.9 L (8.4-10.2) mg/dL Iron (65-175) ug/dL TIBC (228-460) ug/dL Iron Saturation (15.00-50.00) Transferrin (204.0-354.0) mg/dL Ferritin (22.0-322.0) ng/mL Total Bilirubin 6.6 H (0.2-1.3) mg/dL Conjugated Bilirubin 4.1 H (0.0-0.3) mg/dL Delta Bilirubin 1.8 H (0.0-0.2) mg/dL AST 108 H (17-59) U/L ALT 97 H (21-72) U/L Alkaline Phosphatase 153 H (38-126) U/L Total Protein 5.3 L (6.3-8.2) g/dL Total Protein (PEP) (6.2-8.2) g/dL Albumin 2.3 L (3.5-5.0) g/dL [id number]-[id number] (99.0-242.0) mg/dL Ur 24 Hour Volume (800-1800) mls U Tot Protein 24h, Calc (42.0-225.0) mg/24hr CMV IgG Ab (Non-Reactive) EBV Capsid Ag IgG Intrp (NEGATIVE) EBV Nuc Ag IgG Interp (NEGATIVE) Assessment and Plan Assessment: Acute Kidney injury associated with NSAID use -Avoid NSAIDs -Continue with IV fluids -Appreciate nephrology recommendations:Plan for renal biopsy likely on Thursday -SAMMY, complement levels are negative -Avoid additional nephrotoxic agents -Repeat labs in a.m. -No signs of hydronephrosis on abdominal imaging -Await urine eosinophils -Await anti-GBM, antimitochondrial antibody, ANCA Tranaminitis -GI recommendations appreciated -MRI liver with possible lesion however severely limited secondary to fact, would not be able to use contrast if need to repeat computed tomography scan, await further recommendations from GI -Alpha-1 antitrypsin elevated, ceruloplasmin normal, Tylenol level negative, acute hepatitis profile negative, acute CMV and EBV negative. -Patient denies significant alcohol use. nausea and vomiting- uremia vs gastroenteritis -Appears resolved -White blood cell count improving Microcytic anemia associated with thrombocytopenia -Likely related to liver disease and renal disease -Iron studies normal -Follow CBC Tobacco abuse -Cessation -Nicotine replacement No metabolic acidosis noted No signs of UTI- stop rocephin DVT prophylaxis: Heparin Discussed with: patient, nursing Anticipated discharge: 3-[address]: return to [place] A total of 40 minutes was spent on the care of this complex patient more than 50% of the time was spent in counseling and care coordination.
[2018-12-18 18:57] LABS: Creatinine,Urine Random 32.9 mg/dL
--- NOTE | 2018-12-18 21:46 | P.PN ---
Subjective Progress Note Date: 12/18/18 Principal diagnosis: Elevated liver enzymes patient is seen lying in bed reporting that overall he better. No nausea or vomiting reported. He is tolerating his diet. Objective - Vital Signs Vital signs: Vital Signs Temp 98.4 F 12/18/18 12:35 Pulse 71 12/18/18 12:35 Resp 16 12/18/18 12:35 BP 95/57 12/18/18 12:35 Pulse Ox 97 12/18/18 12:35 Intake & Output 12/17/18 12/18/18 12/18/18 18:59 06:59 18:59 Intake Total 2700 1640 Balance 2700 1640 Weight 77.111 kg Intake: Intake, IV Titration 1550 1100 Amount Sodium Chloride 0.9% 1, 1500 1000 000 ml @ 125 mls/hr IV . Q8H INOCENCIO Rx#:[id number] cefTRIAXone 1 gm In 50 100 Sodium Chloride 0.9% 50 ml @ 100 mls/hr IVPB Q24H INOCENCIO Rx#:[id number] Oral 1150 540 Other: Voiding Method Urinal Urinal # Voids 3 300 # Bowel Movements 1 - Exam On physical examination, patient appears comfortable in no apparent distress. HEAD: Normocephalic, atraumatic. EYES: Scleral icterus. No conjunctival injection. MOUTH: No lesions, tongue midline. NECK: Trachea midline, no gross abnormalities. CHEST: Clear to auscultation with no wheezing or rhonchi appreciated. HEART: Regular rate and rhythm. ABDOMEN: Soft. Bowel sounds are positive. No organomegaly. No guarding or rigidity. EXTREMITIES: No pedal edema. SKIN: No rashes, jaundice. NEUROLOGIC: Alert and oriented x3. No focal deficits. - Labs CBC & Chem 7: 12/17/18 05:47 12/18/18 07:34 Labs: Abnormal Lab Results - Last 24 Hours (Table) 12/17/18 12/17/18 12/17/18 Range/Units 05:47 05:47 05:47 BUN (9-20) mg/dL Creatinine (0.66-1.25) mg/dL Calcium (8.4-10.2) mg/dL Iron 15 L (65-175) ug/dL TIBC 193 L (228-460) ug/dL Iron Saturation 7.77 L (15.00-50.00) Transferrin 130.0 L (204.0-354.0) mg/dL Ferritin 1346.2 H (22.0-322.0) ng/mL Total Bilirubin (0.2-1.3) mg/dL Conjugated Bilirubin (0.0-0.3) mg/dL Delta Bilirubin (0.0-0.2) mg/dL AST (17-59) U/L ALT (21-72) U/L Alkaline Phosphatase (38-126) U/L Creatine Kinase 488 H (55-170) U/L Total Protein (6.3-8.2) g/dL Total Protein (PEP) 5.0 L (6.2-8.2) g/dL Albumin (3.5-5.0) g/dL Ajaca-3-Gpkdtpxgvkr 330.0 H (99.0-242.0) mg/dL Ur 24 Hour Volume (800-1800) mls U Tot Protein 24h, Calc (42.0-225.0) mg/24hr CMV IgG Ab Reactive H (Non-Reactive) EBV Capsid Ag IgG Intrp POSITIVE H (NEGATIVE) EBV Nuc Ag IgG Interp POSITIVE H (NEGATIVE) 12/18/18 12/18/18 12/18/18 Range/Units 06:30 07:34 07:34 BUN 88 H (9-20) mg/dL Creatinine 5.13 H (0.66-1.25) mg/dL Calcium 7.9 L (8.4-10.2) mg/dL Iron (65-175) ug/dL TIBC (228-460) ug/dL Iron Saturation (15.00-50.00) Transferrin (204.0-354.0) mg/dL Ferritin (22.0-322.0) ng/mL Total Bilirubin 6.6 H (0.2-1.3) mg/dL Conjugated Bilirubin 4.1 H (0.0-0.3) mg/dL Delta Bilirubin 1.8 H (0.0-0.2) mg/dL AST 108 H (17-59) U/L ALT 97 H (21-72) U/L Alkaline Phosphatase 153 H (38-126) U/L Creatine Kinase (55-170) U/L Total Protein 5.3 L (6.3-8.2) g/dL Total Protein (PEP) (6.2-8.2) g/dL Albumin 2.3 L (3.5-5.0) g/dL Dlrup-2-Bvuukatdvvd (99.0-242.0) mg/dL Ur 24 Hour Volume 2450 H (800-1800) mls U Tot Protein 24h, Calc 735 H (42.0-225.0) mg/24hr CMV IgG Ab (Non-Reactive) EBV Capsid Ag IgG Intrp (NEGATIVE) EBV Nuc Ag IgG Interp (NEGATIVE) Assessment and Plan (1) Elevated liver enzymes Narrative/Plan: 43-year-old male who presented to the hospital due to complaints of nausea and vomiting after one week at a rehabilitation center where he was receiving treatment for polysubstance. On presentation to the hospital liver enzymes were found to be markedly elevated with total bilirubin 5.8, alkaline phosphatase 195, AST 99 and ALT 95. Ultrasound negative for any findings of gallstones or gallbladder wall thickening and CBD within normal limits at 4 mm. Unclear etiology of elevation in liver enzymes however the patient's 30 year history of heavy alcohol use does make underlying fibrosis/cirrhosis likely, with consideration also for ischemia/hypoperfusion of the liver in the setting of dehydration, acute viral hepatitis panel significant only for immunity to hepatitis B, with serologic workup negative to date. MRI abdomen severely limited by motion artifact with concern for distended gallbladder and possibility of mass unable to be ruled out due to the poor quality of the study. Current Visit: Yes Status: Acute Code(s): R74.8 - ABNORMAL LEVELS OF OTHER SERUM ENZYMES SNOMED Code(s): 607149805 (2) History of alcohol abuse Current Visit: Yes Status: Acute Code(s): F10.11 - ALCOHOL ABUSE, IN REMISSION SNOMED Code(s): 973269307 Plan: Supportive care IV fluid hydration continue to monitor CBC, CMP and INR Antiemetic therapy as needed Okay for diet Full liver serologies ordered and negative today MRI abdomen with findings of a mildly dilated gallbladder and unable to rule out hepatic mass due to poor quality of the study, we will order HIDA scan for further evaluation and patient will need further imaging to evaluate and rule out hepatic mass with modality to be decided based on patient's kidney function Thank you for allowing us to participate in the care of the patient we will continue to follow
[2018-12-18] MEDS: HEPARIN SODIUM,PORCINE 5,000 UNIT/ML 1 ML VIAL SQ SCH (23:45)
[2018-12-19] MEDS: SODIUM CHLORIDE 0.9% 1,000 ML IV SCH ×3 (04:47→19:21)
[2018-12-19 07:59] LABS: HCT 35.1 % (39.0-53.0); HGB 11.8 gm/dL (13.0-17.5); MCH 25.6 pg (25.0-35.0); MCHC 33.5 g/dL (31.0-37.0); MCV 76.3 fL (80.0-100.0); Mean Platelet Volume 6.6; Microcytosis Slight; Platelet Count 137 k/uL (150-450); RBC 4.61 m/uL (4.30-5.90); RDW 14.7 % (11.5-15.5); WBC 10.6 k/uL (3.8-10.6)
[2018-12-19 08:05] LABS: Albumin 2.3 g/dL (3.5-5.0); Magnesium 1.5 mg/dL (1.6-2.3); Potassium 3.4 mmol/L (3.5-5.1); Total Bilirubin 7.6 mg/dL (0.2-1.3); Total Protein 5.5 g/dL (6.3-8.2)
[2018-12-19 08:18] LABS: Prothrombin Time 10.3 sec (9.0-12.0)
--- NOTE | 2018-12-19 10:01 | NM ---
Nuclear medicine hepatobiliary scan. HISTORY: Pain. COMPARISON: MRI 12/18/2018, ultrasound gallbladder 12/17/2018 DOSAGE: The patient received 5.2 mCi of Technetium 99m Choletec. FINDINGS: There is normal hepatic extraction. The gallbladder is seen by 50 minutes. There is bilia ry to bowel clearance by 30 minutes. Ejection fraction was not performed for submitted IMPRESSION: 1. Normal filling of the gallbladder with no evidence to suggest cholecystitis. 2. There is reduced radiotracer uptake involving the lateral margin of the right lobe of liver corres ponding to the MRI abnormality.
[2018-12-19] MEDS: HEPARIN SODIUM,PORCINE 5,000 UNIT/ML 1 ML VIAL SQ SCH ×3 (11:13→23:00)
--- NOTE | 2018-12-19 13:39 | P.PN ---
Subjective Progress Note Date: 12/19/18 Principal diagnosis: nausea and vomiting Patient is a 43-year-old -[place] male with a past medical history of polysubstance abuse with heroin and cocaine, tobacco abuse, and prior acute kidney injury. Patient presented from [place] due to 2 days of nausea and vomiting. In the ER he underwent an extensive evaluation. On arrival his vital signs were within normal limits. Laboratory analysis showed an elevated white blood cell count at 20.3, hemoglobin 12.1, platelets 124, BUN 86, creatinine 5.92, total bilirubin 4.5, AST 117, ALP 100, alkaline phosphatase 205. Urinalysis was negative. He underwent a right upper quadrant ultrasound which showed no gallstones, mildly prominent pancreatic duct, and right renal cyst. He was started on IV fluids and made for further monitoring. Acute hepatitis panel was checked which was nonreactive. GI and nephrology were consulted. SAMMY negative, complement levels negative. IgG for EBV and CMV reactive however IgM was nonreactive. On 12/18 he had slight improvement in his renal function. Ceruloplasmin negative, alpha-1 antitrypsin was elevated, CPK was not significantly elevated consistent with rhabdo. His ferritin was slightly elevated at 1346 over remainder of labs were not consistent with hemachromatosis . By the morning of 12/19 he had significant improvemente in his renal functions- however liver enzymes and bilirubin remained elevated. MRI of the abdomen was limited due to motion artifact, possible 2.7 CM abnormal signal in the right lobe of the liver on T2 weighted imaging. HIDA scan showed normal filling of gallbladder wtih reduced radiotracer uptake in the lateral margin of the right lobe of the liver. Patient seen and examined at bedside. Feeling okay today, still very tired, no nausea, no vomiting, tolerating diet. Objective - Vital Signs Vital signs: Vital Signs Temp 98.8 F 12/19/18 04:52 Pulse 63 12/19/18 04:52 Resp 20 12/19/18 04:52 BP 105/63 12/19/18 04:52 Pulse Ox 99 12/19/18 04:52 Intake & Output 12/18/18 12/19/18 12/19/18 18:59 06:59 18:59 Intake Total 1200 1745 Output Total 600 1000 Balance 600 745 Intake: Intake, IV Titration 1500 Amount Sodium Chloride 0.9% 1, 1500 000 ml @ 125 mls/hr IV . Q8H INOCENCIO Rx#:[id number] Oral 1200 245 Output: Urine 600 1000 Other: Voiding Method Urinal Urinal Urinal # Voids 2 - Exam General: non toxic, no distress, appears at stated age Derm: warm, dry Head: atraumatic, normocephalic, symmetric Eyes: EOMI, no lid lag, anicteric sclera Mouth: no lip lesion, mucus membranes moist Cardiovascular: S1S2 reg, no murmur, positive posterior tibial pulse bilateral, Lungs: CTA bilateral, no rhonchi, no rales , no accessory muscle use Abdominal: soft, nontender to palpation, no guarding, no appreciable organomegaly Ext: no gross muscle atrophy, no edema, no contractures Neuro: CN II-XI grossly intact, no focal neuro deficits Psych: Alert, oriented, appropriate affect - Labs CBC & Chem 7: 12/19/18 07:30 12/19/18 07:30 Labs: Abnormal Lab Results - Last 24 Hours (Table) 12/17/18 12/19/18 12/19/18 Range/Units 18:30 07:30 07:30 Hgb 11.8 L (13.0-17.5) gm/dL Hct 35.1 L (39.0-53.0) % MCV 76.3 L (80.0-100.0) fL Plt Count 137 L (150-450) k/uL Potassium 3.4 L (3.5-5.1) mmol/L BUN 63 H (9-20) mg/dL Creatinine 2.94 H (0.66-1.25) mg/dL Calcium 8.0 L (8.4-10.2) mg/dL Magnesium 1.5 L (1.6-2.3) mg/dL Total Bilirubin 7.6 H (0.2-1.3) mg/dL AST 245 H (17-59) U/L ALT 190 H (21-72) U/L Alkaline Phosphatase 185 H (38-126) U/L Total Protein 5.5 L (6.3-8.2) g/dL Albumin 2.3 L (3.5-5.0) g/dL U Random Total Protein 19 H (<12) mg/dL Microbiology - Last 24 Hours (Table) 07/06/19 18:30 Urine Culture - Preliminary Urine,Voided Assessment and Plan Assessment: Acute Kidney injury associated with NSAID use -Avoid NSAIDs -Continue with IV fluids -Appreciate nephrology recommendations: improvement in kidney function -SAMMY, complement levels are negative -Avoid additional nephrotoxic agents -Repeat labs in a.m. -No signs of hydronephrosis on abdominal imaging -Urine eosinophils negative -Await anti-GBM, antimitochondrial antibody, ANCA Tranaminitis -GI recommendations appreciated -MRI liver with possible lesion however severely limited secondary to fact, would not be able to use contrast if need to repeat computed tomography scan - HIDA confirms area of decreased uptake -Alpha-1 antitrypsin elevated, ceruloplasmin normal, Tylenol level negative, acute hepatitis profile negative, acute CMV and EBV negative. -Patient denies recent significant alcohol use. Hx of binge drinking Microcytic anemia associated with thrombocytopenia -Likely related to liver disease and renal disease -Iron studies normal -Follow CBC Tobacco abuse -Cessation -Nicotine replacement No metabolic acidosis noted No signs of UTI- stop rocephin nausea and vomiting, resolved DVT prophylaxis: Heparin Discussed with: patient, nursing, Dr Echavarria, Dr. Castro Anticipated discharge: 2-[address]: [facility] A total of 25 minutes was spent on the care of this complex patient more than 50% of the time was spent in counseling and care coordination.
--- NOTE | 2018-12-19 15:29 | PN ---
PROGRESS NOTE Patient is seen for followup for acute kidney injury. He is maintained on IV fluids. Renal function is finally improved. Creatinine down to 2.9 from 5.1 yesterday. Patient has had good urine output. PHYSICAL EXAMINATION: On examination, blood pressure this morning 105/63, heart rate 63 per minute. He is afebrile. Examination of the heart S1, S2. Examination of the lungs, decreased breath sounds in the bases. Abdomen is soft, nontender. Exam of lower extremities shows no evidence of edema. LABS: Show sodium of 139, potassium 3.4, chloride 106, BUN 63, serum creatinine 2.9, hemoglobin 11.8 g/dL. CK was 488 on December 17. ASSESSMENT: 1. Acute kidney injury, appears to be acute tubular necrosis/prerenal, currently improving. Continue with IV fluids. Also component of toxicity from NSAIDs. 2. Metabolic acidosis from renal failure. 3. Rhabdomyolysis from cocaine abuse. 4. Liver dysfunction. Enzymes are slightly are worse today. No hepatotoxic medications noted at this time. PLAN: Continue IV fluids. Repeat labs in a.m. Replace potassium. MMODL / IJN: [id number] /
--- NOTE | 2018-12-19 21:27 | P.PN ---
Subjective Progress Note Date: 12/19/18 Principal diagnosis: Elevated liver enzymes Feeling much better, walking the halls today. Tolerating diet, reporting urine is less dark today. Objective - Vital Signs Vital signs: Vital Signs Temp 98.8 F 12/19/18 04:52 Pulse 63 12/19/18 04:52 Resp 20 12/19/18 04:52 BP 105/63 12/19/18 04:52 Pulse Ox 99 12/19/18 04:52 Intake & Output 12/18/18 12/19/18 12/19/18 18:59 06:59 18:59 Intake Total 1200 1745 Output Total 600 1000 Balance 600 745 Intake: Intake, IV Titration 1500 Amount Sodium Chloride 0.9% 1, 1500 000 ml @ 125 mls/hr IV . Q8H INOCENC[facility] Rx#:[id number] Oral 1200 245 Output: Urine 600 1000 Other: Voiding Method Urinal Urinal # Voids 2 - Exam On physical examination, patient appears comfortable in no apparent distress. HEAD: Normocephalic, atraumatic. EYES: Scleral icterus. No conjunctival injection. MOUTH: No lesions, tongue midline. NECK: Trachea midline, no gross abnormalities. CHEST: Clear to auscultation with no wheezing or rhonchi appreciated. HEART: Regular rate and rhythm. ABDOMEN: Soft. Bowel sounds are positive. No organomegaly. No guarding or rigidity. EXTREMITIES: No pedal edema. SKIN: No rashes, jaundice. NEUROLOGIC: Alert and oriented x3. No focal deficits. - Labs CBC & Chem 7: 12/19/18 07:30 12/19/18 07:30 Labs: Abnormal Lab Results - Last 24 Hours (Table) 12/17/18 12/17/18 12/18/18 Range/Units 05:47 18:30 06:30 Hgb (13.0-17.5) gm/dL Hct (39.0-53.0) % MCV (80.0-100.0) fL Plt Count (150-450) k/uL Potassium (3.5-5.1) mmol/L BUN (9-20) mg/dL Creatinine (0.66-1.25) mg/dL Calcium (8.4-10.2) mg/dL Magnesium (1.6-2.3) mg/dL Transferrin 130.0 L (204.0-354.0) mg/dL Total Bilirubin (0.2-1.3) mg/dL AST (17-59) U/L ALT (21-72) U/L Alkaline Phosphatase (38-126) U/L Total Protein (6.3-8.2) g/dL Albumin (3.5-5.0) g/dL Ykgtp-1-Iamtsmcjikp 330.0 H (99.0-242.0) mg/dL U Random Total Protein 19 H (<12) mg/dL U Tot Protein 24h, Calc 735 H (42.0-225.0) mg/24hr 12/19/18 12/19/18 Range/Units 07:30 07:30 Hgb 11.8 L (13.0-17.5) gm/dL Hct 35.1 L (39.0-53.0) % MCV 76.3 L (80.0-100.0) fL Plt Count 137 L (150-450) k/uL Potassium 3.4 L (3.5-5.1) mmol/L BUN 63 H (9-20) mg/dL Creatinine 2.94 H (0.66-1.25) mg/dL Calcium 8.0 L (8.4-10.2) mg/dL Magnesium 1.5 L (1.6-2.3) mg/dL Transferrin (204.0-354.0) mg/dL Total Bilirubin 7.6 H (0.2-1.3) mg/dL AST 245 H (17-59) U/L ALT 190 H (21-72) U/L Alkaline Phosphatase 185 H (38-126) U/L Total Protein 5.5 L (6.3-8.2) g/dL Albumin 2.3 L (3.5-5.0) g/dL Bfjuy-1-Ohdljfplakt (99.0-242.0) mg/dL U Random Total Protein (<12) mg/dL U Tot Protein 24h, Calc (42.0-225.0) mg/24hr Microbiology - Last 24 Hours (Table) 12/18/18 18:30 Urine Culture - Preliminary Urine,Voided Assessment and Plan (1) Elevated liver enzymes Narrative/Plan: 43-year-old male who presented to the hospital due to complaints of nausea and vomiting after one week at a rehabilitation center where he was receiving treatment for polysubstance. On presentation to the hospital liver enzymes were found to be markedly elevated with total bilirubin 7.6, alkaline phosphatase 185, AST 245 and ALT 190. Ultrasound negative for any findings of gallstones or gallbladder wall thickening and CBD within normal limits at 4 mm. HIDA essentially negative for cause of elevated liver enzymes. Unclear etiology of elevation in liver enzymes however the patient's 30 year history of heavy alcohol use does make underlying fibrosis/cirrhosis likely, with consideration also for ischemia/hypoperfusion of the liver in the setting of dehydration, acute viral hepatitis panel significant only for immunity to hepatitis B, with serologic workup negative to date. MRI abdomen severely limited by motion artifact with concern for distended gallbladder and possibility of mass unable to be ruled out due to the poor quality of the study. Current Visit: Yes Status: Acute Code(s): R74.8 - ABNORMAL LEVELS OF OTHER SERUM ENZYMES SNOMED Code(s): 589614088 (2) History of alcohol abuse Current Visit: Yes Status: Acute Code(s): F10.11 - ALCOHOL ABUSE, IN REMISSION SNOMED Code(s): 714812407 Plan: Supportive care IV fluid hydration continue to monitor CBC, CMP and INR Antiemetic therapy as needed Okay for diet Full liver serologies ordered and negative to date MRI abdomen with findings of a mildly dilated gallbladder and unable to rule out hepatic mass due to poor quality of the study GURDEEP reviewed Thank you for allowing us to participate in the care of the patient we will continue to follow
[2018-12-19 21:54] LABS: Albumin 2.3 g/dL (3.5-5.0); Bilirubin, Conjugated 4.3 mg/dL (0.0-0.3); Bilirubin,Unconjugated 1.2 mg/dL (0.0-1.1); Total Bilirubin 7.5 mg/dL (0.2-1.3); Total Protein 5.5 g/dL (6.3-8.2)
[2018-12-20] MEDS: SODIUM CHLORIDE 0.9% 1,000 ML IV SCH ×3 (03:24→23:47)
[2018-12-20 06:15] LABS: Herpes simplex IgG II Ab 1.21 (< or = 0.90)
[2018-12-20] MEDS: HEPARIN SODIUM,PORCINE 5,000 UNIT/ML 1 ML VIAL SQ SCH ×3 (08:35→23:47)
[2018-12-20 09:23] LABS: Prothrombin Time 10.5 sec (9.0-12.0)
[2018-12-20 09:26] LABS: Albumin 2.3 g/dL (3.5-5.0); Calcium 7.7 mg/dL (8.4-10.2); Magnesium 1.1 mg/dL (1.6-2.3); Potassium 3.4 mmol/L (3.5-5.1); Total Bilirubin 5.9 mg/dL (0.2-1.3); Total Protein 5.7 g/dL (6.3-8.2)
[2018-12-20] MEDS ORDERED: POTASSIUM BICARBONATE/CIT AC 20 MEQ TABLET.EFF PO ONE (10:48)
[2018-12-20] MEDS: MAGNESIUM SULFATE-D5W PMX 1 GM in DEXTROSE/WATER 1 100ML.BAG IVPB SCH ×4 (11:42→15:30)
--- NOTE | 2018-12-20 12:37 | P.PN ---
Subjective Progress Note Date: 12/20/18 Principal diagnosis: Elevated liver enzymes 43-year-old gentle with a history of polysubstance abuse rhabdomyolysis recent heroin usage admitted with acute kidney injury transaminitis jaundice. Presently denies abdominal pain. MRI abdomen could not rule out liver pathology. HIDA scan redemonstrated MRI findings. LFTs slightly improved today total bilirubin 5.9. AST 143. ALT 177. AP 184. BUN 35. Creatinine improved 1.7 decreased from 2.9. Tolerating regular diet. Hepatitis screen nonreactive. Objective - Vital Signs Vital signs: Vital Signs Temp 97.9 F 12/20/18 11:55 Pulse 53 L 12/20/18 11:55 Resp 16 12/20/18 11:55 BP 124/81 12/20/18 11:55 Pulse Ox 99 12/20/18 11:55 Intake & Output 12/19/18 12/20/18 12/20/18 18:59 06:59 18:59 Intake Total 700 590 Output Total 500 1650 Balance 200 -1060 Intake: Oral 700 590 Output: Urine 500 1650 Other: Voiding Method Urinal Urinal Urinal # Voids 1 - Exam General appearance: The patient is alert, oriented, in no acute distress. Jaundice. HET: Head is normocephalic and atraumatic. Pupils are equal and reactive. Sclerae icterus. Oropharynx is clear without lesions. Neck: Supple without lymphadenopathy. Trachea midline. Heart: S1 S2. Regular rate and rhythm. Lungs: No crackles or wheezes are heard. Abdomen: Soft, nontender, nondistended with bowel sounds. No peritoneal signs. No palpable organomegaly or masses. Extremities: Normal skin color and turgor. No cyanosis, rash, ulceration, clubbing, or edema. Radial and pedal pulses are 2/4 bilaterally. Neurological: No focal deficits. Strength and sensation are grossly intact. - Labs CBC & Chem 7: 12/19/18 07:30 12/20/18 08:54 Labs: Abnormal Lab Results - Last 24 Hours (Table) 12/18/18 12/19/18 12/20/18 Range/Units 07:34 07:30 08:54 Potassium 3.4 L (3.5-5.1) mmol/L BUN 35 H (9-20) mg/dL Creatinine 1.72 H (0.66-1.25) mg/dL Glucose 113 H (74-99) mg/dL Calcium 7.7 L (8.4-10.2) mg/dL Magnesium 1.1 L (1.6-2.3) mg/dL Total Bilirubin 7.5 H 5.9 H (0.2-1.3) mg/dL Conjugated Bilirubin 4.3 H (0.0-0.3) mg/dL Unconjugated Bilirubin 1.2 H (0.0-1.1) mg/dL Delta Bilirubin 2.0 H (0.0-0.2) mg/dL AST 239 H 143 H (17-59) U/L ALT 189 H 177 H (21-72) U/L Alkaline Phosphatase 190 H 184 H (38-126) U/L Total Protein 5.5 L 5.7 L (6.3-8.2) g/dL Albumin 2.3 L 2.3 L (3.5-5.0) g/dL HSV I IgG Ab 49.80 H (< or = 0.90) HSV II IgG 1.21 H (< or = 0.90) Microbiology - Last 24 Hours (Table) 12/18/18 18:30 Urine Culture - Final Urine,Voided Assessment and Plan (1) Elevated liver enzymes Narrative/Plan: underlying liver abnormality per MRI abdomen and HIDA cannot be excluded. Current Visit: Yes Status: Acute Code(s): R74.8 - ABNORMAL LEVELS OF OTHER SERUM ENZYMES SNOMED Code(s): 301182461 (2) Heroin abuse Current Visit: Yes Status: Acute Code(s): F11.10 - OPIOID ABUSE, UNCOMPLIC ATED SNOMED Code(s): 0299542 (3) BLANCHE (acute kidney injury) Current Visit: Yes Status: Acute Code(s): N17.9 - ACUTE KIDNEY FAILURE, UNSPECIFIED SNOMED Code(s): 04730625 (4) Rhabdomyolysis Current Visit: Yes Status: Acute Code(s): M62.82 - RHABDOMYOLYSIS SNOMED Code(s): 478807954 (5) History of alcohol abuse Current Visit: Yes Status: Acute Code(s): F10.11 - ALCOHOL ABUSE, IN REMISSION SNOMED Code(s): 062850690 Plan: 1. Continue with present medical therapy. CEA AFP requested. MRI abdomen cannot exclude underlying hepatic mass HIDA redemonstrated MRI findings. Re commend a CT abdomen preferably with IV contrast however creatinine is still elevated but improving this can be pursued as an outpatient if CEA and AFP is unremarkable. Continue with daily CBC CMP. Will follow closely with you. Assessment and plan a care discussed with Dr. Schwartz
--- NOTE | 2018-12-20 13:46 | P.PN ---
Subjective Progress Note Date: 12/20/18 Principal diagnosis: nausea and vomiting Patient is a 43-year-old -[place] male with a past medical history of polysubstance abuse with heroin and cocaine, tobacco abuse, and prior acute kidney injury. Patient presented from [facility] due to 2 days of nausea and vomiting. In the ER he underwent an extensive evaluation. On arrival his vital signs were within normal limits. Laboratory analysis showed an elevated white blood cell count at 20.3, hemoglobin 12.1, platelets 124, BUN 86, creatinine 5.92, total bilirubin 4.5, AST 117, ALP 100, alkaline phosphatase 205. Urinalysis was negative. He underwent a right upper quadrant ultrasound which showed no gallstones, mildly prominent pancreatic duct, and right renal cyst. He was started on IV fluids and made for further monitoring. Acute hepatitis panel was checked which was nonreactive. GI and nephrology were consulted. SAMMY negative, complement levels negative. IgG for EBV and CMV reactive however IgM was nonreactive. On 12/18 he had slight improvement in his renal function. Ceruloplasmin negative, alpha-1 antitrypsin was elevated, CPK was not significantly elevated consistent with rhabdo. His ferritin was slightly elevated at 1346 over remainder of labs were not consistent with hemachromatosis . By the morning of 12/19 he had significant improvemente in his renal functions- however liver enzymes and bilirubin remained elevated. MRI of the abdomen was limited due to motion artifact, possible 2.7 CM abnormal signal in the right lobe of the liver on T2 weighted imaging. HIDA scan showed normal filling of gallbladder wtih reduced radiotracer uptake in the lateral margin of the right lobe of the liver. Liver enzymes started to improved on 12/20. Patient seen and examined at bedside. Patient feeling well today, no shortness of breath, no nausea no vomiting, no diarrhea. Objective - Vital Signs Vital signs: Vital Signs Temp 97.9 F 12/20/18 11:55 Pulse 53 L 12/20/18 11:55 Resp 16 12/20/18 11:55 BP 124/81 12/20/18 11:55 Pulse Ox 99 12/20/18 11:55 Intake & Output 12/19/18 12/20/18 12/20/18 18:59 06:59 18:59 Intake Total 700 590 Output Total 500 1650 Balance 200 -1060 Intake: Oral 700 590 Output: Urine 500 1650 Other: Voiding Method Urinal Urinal Urinal # Voids 1 - Exam General: non toxic, no distress, appears at stated age Head: atraumatic, normocephalic, symmetric Eyes: EOMI, no lid lag, anicteric sclera Mouth: no lip lesion, mucus membranes moist Cardiovascular: S1S2 reg, no murmur, positive posterior tibial pulse bilateral, Lungs: Decreased breath sounds bilateral, no rhonchi, no rales , no accessory muscle use Abdominal: soft, nontender to palpation, no guarding, no appreciable organomegaly Ext: no gross muscle atrophy, no edema, no contractures Neuro: CN II-XI grossly intact, no focal neuro deficits Psych: Alert, oriented, appropriate affect - Labs CBC & Chem 7: 12/19/18 07:30 12/20/18 08:54 Labs: Abnormal Lab Results - Last 24 Hours (Table) 12/18/18 12/19/18 12/20/18 Range/Units 07:34 07:30 08:54 Potassium 3.4 L (3.5-5.1) mmol/L BUN 35 H (9-20) mg/dL Creatinine 1.72 H (0.66-1.25) mg/dL Glucose 113 H (74-99) mg/dL Calcium 7.7 L (8.4-10.2) mg/dL Magnesium 1.1 L (1.6-2.3) mg/dL Total Bilirubin 7.5 H 5.9 H (0.2-1.3) mg/dL Conjugated Bilirubin 4.3 H (0.0-0.3) mg/dL Unconjugated Bilirubin 1.2 H (0.0-1.1) mg/dL Delta Bilirubin 2.0 H (0.0-0.2) mg/dL AST 239 H 143 H (17-59) U/L ALT 189 H 177 H (21-72) U/L Alkaline Phosphatase 190 H 184 H (38-126) U/L Total Protein 5.5 L 5.7 L (6.3-8.2) g/dL Albumin 2.3 L 2.3 L (3.5-5.0) g/dL HSV I IgG Ab 49.80 H (< or = 0.90) HSV II IgG 1.21 H (< or = 0.90) Microbiology - Last 24 Hours (Table) 12/18/18 18:30 Urine Culture - Final Urine,Voided Assessment and Plan Assessment: Acute Kidney injury associated with NSAID use Improving -Avoid NSAIDs -Continue with IV fluids -Appreciate nephrology recommendations: improvement in kidney function -SAMMY, complement levels are negative -Avoid additional nephrotoxic agents -Repeat labs in a.m. -No signs of hydronephrosis on abdominal imaging -Urine eosinophils negative -Await anti-GBM, antimitochondrial antibody, ANCA Tranaminitis -GI recommendations appreciated: CEA and AFP requested. CT abdomen and pelvis when okay with nephrology, likely could be deferred to outpatient. Patient prefers to see somebody out of [facility] as he lives in [place] -MRI liver with possible lesion however severely limited secondary to fact - HIDA confirms area of decreased uptake -Alpha-1 antitrypsin elevated, ceruloplasmin normal, Tylenol level negative, acute hepatitis profile negative, acute CMV and EBV negative. HSV consistent with prior infection -Patient denies recent significant alcohol use. Hx of binge drinking Microcytic anemia associated with thrombocytopenia -Likely related to liver disease and renal disease -Iron studies normal -Follow CBC Tobacco abuse -Cessation -Nicotine replacement No metabolic acidosis noted No signs of UTI- stop rocephin nausea and vomiting, resolved If liver enzymes better in AM then return to [facility] DVT prophylaxis: Heparin Discussed with: patient, nursing Anticipated discharge: in AM Anticipated discharge place: [facility] A total of 25 minutes was spent on the care of this complex patient more than 50% of the time was spent in counseling and care coordination.
[2018-12-20 13:52] LABS: Albumin 2.14 g/dL (3.80-4.90); Gamma Globulin 0.88 g/dL (0.70-1.50)
[2018-12-20 13:53] LABS: Smooth Muscle Antibody 23 UNITS (<20)
[2018-12-20 14:47] LABS: C-ANCA <1:20 Titer (<1:20); P-ANCA <1:20 Titer (<1:20)
--- NOTE | 2018-12-20 15:33 | PN ---
PROGRESS NOTE The patient is seen for followup for kidney injury. He is currently lying in bed. He is comfortable. He denies any significant complaints. Patient is maintained on IV fluids. He has had good urine output. PHYSICAL EXAMINATION: This morning, blood pressure 107/65, heart rate 59 per minute. He is afebrile. Examination of the heart S1, S2. Examination of lungs bilateral breath sounds are heard. Abdomen is soft, nontender. Examination of the lower extremities show no significant edema. [employer] exam is grossly intact. LABS: Show sodium 139, potassium 3.4, chloride 105, BUN 35, serum creatinine 1.72. The enzymes are also improved. AST down to 143, ALT 177. ASSESSMENT: 1. Acute kidney injury, acute tubular necrosis and secondary to volume depletion, currently improving. 2. Hypovolemia, improved. Patient is maintained on IV fluids. 3. Hypokalemia, currently being replaced and continue to encourage increased oral intake. Patient could be discharged from nephrology standpoint. Follow up the lab as outpatient. Avoid nephrotoxic medications including NSAIDs. MMODL / IJN: [id number] /
[2018-12-20 15:35] LABS: HCV Quant Log 5.99 (<1.08)
[2018-12-21] MEDS: SODIUM CHLORIDE 0.9% 1,000 ML IV SCH ×2 (06:04→13:22)
[2018-12-21 07:45] LABS: Albumin 2.7 g/dL (3.5-5.0); Potassium 4.2 mmol/L (3.5-5.1); Total Bilirubin 4.5 mg/dL (0.2-1.3); Total Protein 6.4 g/dL (6.3-8.2)
[2018-12-21] MEDS: HEPARIN SODIUM,PORCINE 5,000 UNIT/ML 1 ML VIAL SQ SCH (07:56)
[2018-12-21] MEDS ORDERED: MULTIVITAMINS, THERA 1 EACH TAB PO SCH (09:00)
--- NOTE | 2018-12-21 11:25 | P.DS ---
Providers Date of admission: 12/16/18 23:56 Expected date of discharge: 12/21/18 Attending physician: Juanjose Fowler MD Consults: 12/17/18 00:50 Consult Physician Urgent Consulting Provider: Samm Rivero Consult Reason/Comments: Renal failure Do you want consulting provider notified?: Yes Consult Physician Urgent Consulting Provider: Jasmyn Schwartz Consult Reason/Comments: liver failure Do you want consulting provider notified?: Yes Primary care physician: Stated None Hospital Course: Discharge Diagnosis: Acute kidney injury Transaminitis secondary to hepatitis C, suspect acute infection Microcytic anemia associated with thrombocytopenia Tobacco abuse Intractable nausea and vomiting Illicit drug use Hospital Course: Patient is a 43-year-old -[place] male with a past medical history of polysubstance abuse with heroin and cocaine, tobacco abuse, and prior acute kidney injury. Patient presented from [facility] due to 2 days of nausea and vomiting. In the ER he underwent an extensive evaluation. On arrival his vital signs were within normal limits. Laboratory analysis showed an elevated white blood cell count at 20.3, hemoglobin 12.1, platelets 124, BUN 86, creatinine 5.92, total bilirubin 4.5, AST 117, ALP 100, alkaline phosphatase 205. Urinalysis was negative. He underwent a right upper quadrant ultrasound which showed no gallstones, mildly prominent pancreatic duct, and right renal cyst. He was started on IV fluids and made for further monitoring. Hepatitis A and B were negative GI and nephrology were consulted. SAMMY negative, complement levels negative. IgG for EBV and CMV reactive however IgM was nonreactive. On 12/18 he had slight improvement in his renal function. Ceruloplasmin negative, alpha-1 antitrypsin was elevated, CPK was not significantly elevated consistent with rhabdo. His ferritin was slightly elevated at 1346 over remainder of labs were not consistent with hemachromatosis. By the morning of 12/19 he had significant improvement in his renal function- however liver enzymes and bilirubin remained elevated. MRI of the abdomen was limited due to motion artifact, possible 2.7 CM abnormal signal in the right lobe of the liver on T2 weighted imaging. HIDA scan showed normal filling of gallbladder wtih reduced radiotracer uptake in the lateral margin of the right lobe of the liver. Liver enzymes started to improved on 12/20. Liver enzymes continued to improve and renal function normalized by 12/21. After discussion with GI was determined appro priate to await several weeks before repeating computed tomography scan of the abdomen and pelvis with contrast to confirm presence or absence of liver mass. This will be done to ensure that patient has had full renal recovery. AFP and CEA were pending on discharge. He did come back Hep C positive. Patient lives in [place] and will be following up at [facility]. He was given information to contact Dr. Yates and Dr. Moore for appointments. I reinforced not sharing needles, abstaining from drugs and alcohol, and not having unprotected sex due to his hepatitis C infection. Patient is aware and is in agreement. We discussed at length the need for follow-up as we are not sure if there is a liver lesion present are not in that he will may be a candidate for treatment of his hepatitis C down the road as he is able to maintain sobriety. He understands and is on following up appropriately. Patient seen and examined at bedside.No chest pain, SOB, nausea, or vomiting, all questions answered. Vital signs reviewed and stable. General: non toxic, no distress, appears at stated age Derm: warm, dry, multiple tattoos Head: atraumatic, normocephalic, symmetric Eyes: EOMI, no lid lag, anicteric sclera Mouth: no lip lesion, mucus membranes moist Cardiovascular: S1S2 reg, no murmur, positive posterior tibial pulse bilateral, Lungs: CTA bilateral, no rhonchi, no rales , no accessory muscle use Abdominal: soft, nontender to palpation, no guarding, no appreciable organomegaly Ext: no gross muscle atrophy, no edema, no contractures Neuro: CN II-XI grossly intact, no focal neuro deficits Psych: Alert, oriented, appropriate affect A total of 35 minutes of time were spent preparing this complex discharge summary . Patient Condition at Discharge: Stable Plan - Discharge Summary Discharge Rx Participant: Yes New Discharge Prescriptions: Continue traZODone HCL 50 - 150 mg PO HS Chlorpheniramine Maleate [Chlor-Trimeton] 4 mg PO Q4H PRN PRN Reason: Allergy Symptoms Ondansetron HCl [Zofran] 8 mg PO Q6H PRN PRN Reason: Nausea Calcium/Magnesium 1000mg/500mg 1 - 2 tab PO TID PRN PRN Reason: Muscle Spasm Thiamine [Vitamin B-1] 100 mg PO DAILY Multivitamins, Thera [Multivitamin (formulary)] 1 tab PO DAILY Discontinued Ibuprofen [Motrin] 600 mg PO Q6H PRN PRN Reason: Fever And/ Or Pain Ondansetron [Zofran] 4 mg IM Q6H PRN PRN Reason: Nausea Acetaminophen [Tylenol] 650 mg PO Q4H PRN PRN Reason: Fever And/ Or Pain cloNIDine HCL [Catapres] 0.1 mg PO Q4H PRN PRN Reason: HIGH BP Discharge Medication List Calcium/Magnesium 1000mg/500mg 1 - 2 tab PO TID PRN 12/16/18 [History] Chlorpheniramine Maleate [Chlor-Trimeton] 4 mg PO Q4H PRN 12/16/18 [History] Multivitamins, Thera [Multivitamin (formulary)] 1 tab PO DAILY 12/16/18 [History] Ondansetron HCl [Zofran] 8 mg PO Q6H PRN 12/16/18 [History] Thiamine [Vitamin B-1] 100 mg PO DAILY 12/16/18 [History] traZODone HCL 50 - 150 mg PO HS 12/16/18 [History] Follow up Appointment(s)/Referral(s): None,Stated [Primary Care Provider] - 1-2 days Activity/Diet/Wound Care/Special Instructions: Diet: regular Activity: as tolerated Internal Medicine: Christine Moore MD ADDRESS [facility] [id number] [place] [address] Gastroenterology: Hugo Yates MD ADDRESS [facility], [id number] [facility] [address] [place] [address] Pending Studies Pending Results: AFP, CEA
[2018-12-21 12:06] VITALS: BP 126/76; PULSE 61; RESP 17; TEMP 98.1
--- NOTE | 2018-12-21 16:43 | PN ---
PROGRESS NOTE Patient is seen for followup for acute kidney injury. His renal function continues to improve. The patient is currently comfortable. He denies any significant complaints. On examination this morning, blood pressure was 126/76, heart rate 61 per minute. He is afebrile. EXAMINATION OF THE HEART: S1 and S2. EXAMINATION OF LUNGS: Bilateral breath sounds are heard. ABDOMEN: Soft, non-tender. Examination of lower extremities shows no evidence of edema. Labs show sodium 141, potassium 4.2, BUN 23, serum creatinine 1.16. Albumin 2.7. ASSESSMENT: 1. Acute kidney injury; appears to be mainly prerenal. Patient did have proteinuria. It was 24-hour urine protein of 735. Patient is advised to follow up as outpatient. 2. Elevated liver enzymes, most likely associated with hypoperfusion and hypotension, currently improved. 3. Volume depletion, currently improved. 4. Positive [id number] antibody. Follow up with GI as outpatient. PLAN: We will see the patient in the office in about 3-4 weeks' time. He is advised to continue to avoid the use of any nonsteroidal anti-inflammatory agents. MMODL / IJN: [id number] /
[2018-12-22 14:13] LABS: Anti-Glomerular Basement Memb 5 UNITS (0-20)
== END 2018-12-21 19:00 | disposition home or self-care (01) | DRG 683 ==
LOC: EC 21:16 → 3NMEDONC 23:56
PROVIDERS: ADMIT Internal Medicine; ATTEND Internal Medicine
DX: N17.9 Acute kidney failure, unspecified (principal); B17.10 Acute hepatitis C without hepatic coma; E87.2 Acidosis; M62.82 Rhabdomyolysis; D69.6 Thrombocytopenia, unspecified; I95.9 Hypotension, unspecified; E88.09 Other disorders of plasma-protein metabolism, not elsewhere classified; N28.1 Cyst of kidney, acquired; D50.9 Iron deficiency anemia, unspecified; E86.0 Dehydration; E86.1 Hypovolemia; E87.6 Hypokalemia; F11.10 Opioid abuse, uncomplicated; F14.10 Cocaine abuse, uncomplicated; F17.200 Nicotine dependence, unspecified, uncomplicated; I77.6 Arteritis, unspecified; N14.0 Analgesic nephropathy; T39.395A Adverse effect of other nonsteroidal anti-inflammatory drugs [NSAID], initial encounter; M54.6 Pain in thoracic spine; R19.7 Diarrhea, unspecified; R11.2 Nausea with vomiting, unspecified; N40.0 Benign prostatic hyperplasia without lower urinary tract symptoms; Z81.1 Family history of alcohol abuse and dependence; Z83.79 Family history of other diseases of the digestive system
CPT/HCPCS: 36415; 74181; 76705; 78227; 80048; 80053; 80076; 80329; 81001; 81050; 82103; 82105; 82248; 82378; 82390; 82550; 82570; 82728; 83516; 83540; 83550; 83690; 83735; 83930; 83935; 84133; 84156; 84165; 84300; 84466; 85025; 85027; 85610; 85730; 86038; 86160; 86255; 86376; 86644; 86645; 86663; 86664; 86665; 86694; 86695; 86696; 86704; 86705; 86706; 87086; 87205; 87340; 87521; 87522; 87902; 96361; 96374; 96375; 99285